=== PATIENT | male | born 1955 | race Caucasian/White ===

== ENCOUNTER 2023-10-01 02:15 | Inpatient (IN) | payer MEDICARE, OTHER ==
[~2023-10-01] VITALS: Ht 175.3 cm; Wt 77.1 kg
[2023-10-01] VITALS (10 sets, daily range): BP systolic 92–109; BP diastolic 59–80; PULSE 66–83; RESP 16–20; TEMP 97.7–99.4; O2SAT 92–97
[2023-10-01] MEDS ORDERED: ONDANSETRON HCL INJ 2MG/ML 2ML 2 MG/ML VIAL IV PRN (06:00)
[2023-10-01 07:03] LABS: BASOPHILS % 0.2 % (0.0-1.0); EOSINOPHILS # (AUTO) 0.1 (0.0-0.4); EOSINOPHILS % 1.4 % (0.0-6.0); HEMATOCRIT 30.8 % (38.2-49.6); HEMOGLOBIN 10.2 g/dL (14.0-18.0); LYMPHOCYTES # (AUTO) 0.4 (1.0-3.2); LYMPHOCYTES % 6.2 % (18.0-39.1); MEAN CORPUSCULAR HEMOGLOBIN 32.6 pg (28-32); MEAN CORPUSCULAR HGB CONC 33.1 g/dL (31-35); MEAN CORPUSCULAR VOLUME 98.4 fL (81-99); MONOCYTES # (AUTO) 0.6 (0.2-0.8); MONOCYTES % 10.5 % (4.4-11.3); NEUTROPHILS # (AUTO) 4.7 (2.1-6.9); NEUTROPHILS % 81.2 % (38.7-80.0); PLATELET COUNT 96 x10e3/uL (140-360); RED BLOOD COUNT 3.13 x10e6/uL (4.3-5.7); RED CELL DISTRIBUTION WIDTH 14.7 % (11.7-14.4); WHITE BLOOD COUNT 5.83 x10e3/uL (4.8-10.8)
[2023-10-01 08:27] LABS: ALBUMIN 3.3 g/dL (3.5-5.0); ALBUMIN/GLOBULIN RATIO 1.2 (0.8-2.0); ANION GAP 13.7 mmol/L (8-16); BILIRUBIN,TOTAL 0.8 mg/dL (0.2-1.2); CREATININE, SERUM 0.74 mg/dL (0.72-1.25); POTASSIUM 3.7 mmol/L (3.5-5.1); TOTAL PROTEIN 6.1 g/dL (6.5-8.1)
[2023-10-01] MEDS ORDERED: METOPROLOL TARTRATE INJ 1 MG/ML VIAL IV PRN (10:30)
[2023-10-01] MEDS ORDERED: SIMETHICONE 80 MG CHEW PO PRN (10:30)
[2023-10-01] MEDS ORDERED: MELATONIN 3 MG TAB PO PRN (10:30)
[2023-10-01] MEDS ORDERED: ALBUTEROL/IPRATROPIUM 3 ML NEB NEB PRN (10:30)
[2023-10-01] MEDS ORDERED: DOCUSATE SODIUM 100 MG CAP PO PRN (10:30)
[2023-10-01] MEDS: SODIUM CHLORIDE 0.9% 250ML 250 ML ONE (12:47)
[2023-10-01] MEDS: Vancomycin IV 1 GM in SODIUM CHLORIDE 0.9% 250ML 250 ML IV ONE (12:52)
[2023-10-01] MEDS ORDERED: DIGOXIN125 MCG PO (12:58)
[2023-10-01] MEDS ORDERED: ATENOLOL50 MG PO (12:58)
[2023-10-01] MEDS ORDERED: ELIQUIS5 MG PO (13:00)
[2023-10-01] MEDS ORDERED: PANTOPRAZOLE SO40 MG PO (13:00)
[2023-10-01] MEDS ORDERED: CARBAMAZEPINE200 MG PO (13:00)
[2023-10-01] MEDS: MICAFUNGIN SODIUM 100 MG in SODIUM CHLORIDE 0.9% 100 ML IV SCH (17:02)
[2023-10-01] MEDS ORDERED: MICAFUNGIN SODIUM 100 MG IV SCH (20:00)
[2023-10-01] MEDS: APIXABAN 5 MG TABLET PO SCH (21:00)
[2023-10-01] MEDS: ATENOLOL 50 MG TAB PO SCH (21:00)
[2023-10-02] VITALS (7 sets, daily range): BP systolic 100–135; BP diastolic 68–81; PULSE 64–81; RESP 17–18; TEMP 97.7–99.3; O2SAT 94–100
[2023-10-02] MEDS: Vancomycin IV 1 GM in SODIUM CHLORIDE 0.9% 250ML 250 ML IV SCH (00:15)
[2023-10-02] MEDS: PANTOPRAZOLE SOD 40 MG TABEC PO SCH (06:37)
[2023-10-02 07:28] LABS: HEMATOCRIT 31.2 % (38.2-49.6); HEMOGLOBIN 10.4 g/dL (14.0-18.0); MEAN CORPUSCULAR HEMOGLOBIN 32.4 pg (28-32); MEAN CORPUSCULAR HGB CONC 33.3 g/dL (31-35); PLATELET COUNT 95 x10e3/uL (140-360); RED BLOOD COUNT 3.21 x10e6/uL (4.3-5.7); RED CELL DISTRIBUTION WIDTH 14.5 % (11.7-14.4); WHITE BLOOD COUNT 4.47 x10e3/uL (4.8-10.8)
[2023-10-02 07:29] LABS: BASOPHILS % 0.2 % (0.0-1.0); EOSINOPHILS # (AUTO) 0.1 (0.0-0.4); EOSINOPHILS % 2.2 % (0.0-6.0); LYMPHOCYTES # (AUTO) 0.7 (1.0-3.2); LYMPHOCYTES % 16.1 % (18.0-39.1); MEAN CORPUSCULAR VOLUME 97.2 fL (81-99); MONOCYTES # (AUTO) 0.8 (0.2-0.8); MONOCYTES % 17.9 % (4.4-11.3); NEUTROPHILS # (AUTO) 2.8 (2.1-6.9); NEUTROPHILS % 63.4 % (38.7-80.0)
[2023-10-02 07:53] LABS: ANION GAP 17.5 mmol/L (8-16); CREATININE, SERUM 0.69 mg/dL (0.72-1.25); POTASSIUM 3.5 mmol/L (3.5-5.1)
[2023-10-02 07:54] LABS: CALCIUM 8.2 mg/dL (8.4-10.2)
[2023-10-02] MEDS: DIGOXIN 0.125 MG TAB PO SCH (10:06)
[2023-10-03] VITALS (10 sets, daily range): BP systolic 130–141; BP diastolic 74–95; PULSE 65–101; RESP 16–20; TEMP 97.7–99.3; O2SAT 95–100
[2023-10-04] VITALS (9 sets, daily range): BP systolic 119–157; BP diastolic 71–87; PULSE 64–89; RESP 16–20; TEMP 97.7–99.1; O2SAT 94–97
[2023-10-04] MEDS: MICAFUNGIN SODIUM 100 MG in SODIUM CHLORIDE 0.9% 100 ML IV SCH (22:26)
[2023-10-05] VITALS (8 sets, daily range): BP systolic 112–135; BP diastolic 61–105; PULSE 64–69; RESP 16–23; TEMP 97.7–99.3; O2SAT 95–99
[2023-10-05] MEDS: Vancomycin IV 1 GM in SODIUM CHLORIDE 0.9% 250ML 250 ML IV SCH (06:39)
[2023-10-05] MEDS: CARBAMAZEPINE 200 MG TAB PO PRN (20:53)
[2023-10-05] MEDS: ACETAMINOPHEN 325 MG TAB PO PRN (20:55)
[2023-10-05] MEDS: ONDANSETRON HCL 4 MG ORAL DISINTEGRATING TAB PO PRN (20:55)
[2023-10-05] MEDS: Morphine 2mg Syringe 2 MG/ML SYR IV ONE (21:17)
[2023-10-05] MEDS: LORAZEPAM INJ 2 MG/ML VIAL IV ONE ×2 (21:20→22:13)
[2023-10-06] VITALS (10 sets, daily range): BP systolic 90–120; BP diastolic 52–86; PULSE 62–87; RESP 18–22; TEMP 97.5–98.7; O2SAT 94–100
[2023-10-06] MEDS ORDERED: Vancomycin IV 1 GM in SODIUM CHLORIDE 0.9% 250ML 250 ML IV SCH (03:00)
[2023-10-06 09:18] LABS: INR 1.05; PROTHROMBIN TIME 14.4 seconds (11.9-14.5)
[2023-10-06 10:13] LABS: BASOPHILS # (AUTO) 0.1 (0.0-0.1); BASOPHILS % 0.4 % (0.0-1.0); EOSINOPHILS % 0.1 % (0.0-6.0); HEMATOCRIT 32.9 % (38.2-49.6); HEMOGLOBIN 10.7 g/dL (14.0-18.0); LYMPHOCYTES # (AUTO) 0.3 (1.0-3.2); LYMPHOCYTES % 2.1 % (18.0-39.1); MEAN CORPUSCULAR HEMOGLOBIN 31.7 pg (28-32); MEAN CORPUSCULAR HGB CONC 32.5 g/dL (31-35); MEAN CORPUSCULAR VOLUME 97.3 fL (81-99); MONOCYTES # (AUTO) 0.4 (0.2-0.8); MONOCYTES % 2.9 % (4.4-11.3); NEUTROPHILS # (AUTO) 12.9 (2.1-6.9); NEUTROPHILS % 94.1 % (38.7-80.0); PLATELET COUNT 148 x10e3/uL (140-360); RED BLOOD COUNT 3.38 x10e6/uL (4.3-5.7); WHITE BLOOD COUNT 13.73 x10e3/uL (4.8-10.8)
[2023-10-06 10:22] LABS: ANION GAP 17.9 mmol/L (8-16); CALCIUM 7.9 mg/dL (8.4-10.2); CREATININE, SERUM 0.88 mg/dL (0.72-1.25); MAGNESIUM 1.4 MG/DL (1.3-2.1); PHOSPHORUS 3.9 MG/DL (2.3-4.7)
[2023-10-06 10:26] LABS: POTASSIUM 2.9 mmol/L (3.5-5.1)
[2023-10-06] MEDS: SODIUM CHLORIDE 0.9% 250ML 250 ML ONE (10:55)
[2023-10-06] MEDS ORDERED: LIDOCAINE HCL 1% LOCAL INJ 20 ML VIAL ONE (11:51)
[2023-10-06 12:10] LABS: BAND NEUTROPHILS % (MANUAL) 9 %; EOSINOPHILS % (MANUAL) 1 % (0-7); LYMPHOCYTES % (MANUAL) 1 % (19-48); MONOCYTES % (MANUAL) 1 % (3.4-9.0); NEUTROPHILS % (MANUAL) 88 % (40-74); PLATELET ESTIMATE ADEQUATE; PLATELET MORPHOLOGY COMMENT NORMAL; RBC MORPHOLOGY COMMENT NORMAL; TOXIC GRANULATION MODERATE
[2023-10-06] MEDS ORDERED: FENTANYL CITRATE/PF 100MCG/2 ML INJ ONE (13:03)
[2023-10-06] MEDS: SODIUM CHLORIDE 0.9% 500ML 500 ML IV ONE (14:43)
[2023-10-06] MEDS: POTASSIUM CHLORIDE 20 MEQ TAB CR PO ONE (20:28)
[2023-10-07] VITALS (7 sets, daily range): BP systolic 116–137; BP diastolic 69–84; PULSE 69–89; RESP 16–18; TEMP 98–98.4; O2SAT 95–98
[2023-10-07 06:10] LABS: ANION GAP 13.1 mmol/L (8-16); CALCIUM 7.5 mg/dL (8.4-10.2); CREATININE, SERUM 0.71 mg/dL (0.72-1.25)
[2023-10-07 06:16] LABS: POTASSIUM 3.1 mmol/L (3.5-5.1)
[2023-10-07] MEDS: POTASSIUM CHLORIDE 20 MEQ TAB CR PO ONE (16:29)
[2023-10-07] MEDS: HEPARIN 500 UNITS/5ML MDV INJ ONE (18:00)
== END 2023-10-07 18:08 | disposition home or self-care (01) | DRG 314 ==
LOC: MED/SURG3 04:47
PROVIDERS: ADMIT Internal Medicine; ATTEND Internal Medicine
PROC: 3E03329 Introduction of Other Anti-infective into Peripheral Vein, Percutaneous Approach (ICD-10-PCS; principal; 2023-10-01)
PROC: 0J2VXYZ Change Other Device in Upper Extremity Subcutaneous Tissue and Fascia, External Approach (ICD-10-PCS; 2023-10-05)
DX: T80.219A Unspecified infection due to central venous catheter, initial encounter (principal); A41.9 Sepsis, unspecified organism; E87.1 Hypo-osmolality and hyponatremia; D69.6 Thrombocytopenia, unspecified; D64.9 Anemia, unspecified; E87.6 Hypokalemia; R41.0 Disorientation, unspecified; Z71.3 Dietary counseling and surveillance; Z68.25 Body mass index [BMI] 25.0-25.9, adult; F17.200 Nicotine dependence, unspecified, uncomplicated; Z90.49 Acquired absence of other specified parts of digestive tract; Y84.8 Other medical procedures as the cause of abnormal reaction of the patient, or of later complication, without mention of misadventure at the time of the procedure; Y92.009 Unspecified place in unspecified non-institutional (private) residence as the place of occurrence of the external cause
CPT/HCPCS: 36415; 36558; 36569; 74470; 77001; 80048; 80053; 80202; 83605; 83735; 84100; 85025; 85610; 87040; 94799; 99252; C1751; C1769; J0692; J2001; J2060; J2248; J2270; J2543; J7040; J7050; Q0162